=== PATIENT | female | born 1970 | race Caucasian/White ===

== ENCOUNTER → 2021-09-04 | Outpatient (CLI) | payer BC ==
[2021-09-04 15:10] LABS: Percent Saturation 3.6 % (15.0-50.0)
== END | disposition home or self-care (01) ==
LOC: LAB SHORT 13:36 → LAB 13:36
PROVIDERS: Internal Medicine Hematology & Oncology
DX: D50.9 Iron deficiency anemia, unspecified (principal)
CPT/HCPCS: 82728; 83540; 83550

== ENCOUNTER → 2021-10-28 | Outpatient (CLI) | payer BC ==
[2021-10-28 13:03] LABS: Percent Saturation 13.4 % (15.0-50.0)
== END ==
LOC: LAB SHORT 09:11
PROVIDERS: Internal Medicine Hematology & Oncology
DX: D50.0 Iron deficiency anemia secondary to blood loss (chronic) (principal)
CPT/HCPCS: 82728; 83540; 83550

== ENCOUNTER 2022-02-18 14:09 | Day surgery (SDC) | payer BC ==
[~2022-02-18] VITALS: Ht 165.1 cm; Wt 96.9 kg
[2022-02-18] MEDS ORDERED: VITAMIN D310 MC4 (14:27)
[2022-02-18] MEDS ORDERED: LOSA25 ×2 (14:27→14:28)
[2022-02-18] MEDS ORDERED: FLUTICASONE-SA1 EAC1 (14:28)
[2022-02-18] MEDS ORDERED: SPIR25 (14:28)
[2022-02-18] MEDS ORDERED: MAGCHL64ER (14:28)
[2022-02-18] MEDS ORDERED: POTA8 (14:28)
[2022-02-18] MEDS ORDERED: FURO20 (14:28)
== END 2022-02-18 15:06 | disposition home or self-care (01) ==
LOC: ORSCSDS 14:09
PROVIDERS: Student in an Organized Health Care Education/Training Program
PROC: 0DJ08ZZ Inspection of Upper Intestinal Tract, Via Natural or Artificial Opening Endoscopic (ICD-10-PCS; principal; 2022-02-18 15:45)
DX: K70.30 Alcoholic cirrhosis of liver without ascites (principal); K76.6 Portal hypertension; K31.89 Other diseases of stomach and duodenum; E87.5 Hyperkalemia; Z87.11 Personal history of peptic ulcer disease; Z79.899 Other long term (current) drug therapy
CPT/HCPCS: J0461; J2250; J2405; J2704; J7120; Q9968

== ENCOUNTER → 2022-03-26 | Outpatient (CLI) | payer BC ==
[~2022-03-26] MED LIST: FLUTICASONE-SA1 EAC1; FURO20; LOSA25; MAGCHL64ER; POTA8; SPIR25; VITAMIN D310 MC4
[2022-03-26 17:45] LABS: Percent Saturation 18.5 % (15.0-50.0)
== END | disposition home or self-care (01) ==
LOC: LAB SHORT 15:12
PROVIDERS: Internal Medicine Hematology & Oncology
DX: D50.9 Iron deficiency anemia, unspecified (principal)
CPT/HCPCS: 82728; 83540; 83550